=== PATIENT | female | born 1935 | race Caucasian/White ===

== ENCOUNTER 2016-11-30 20:55 | Emergency (ER) | payer OTHER, MEDICARE ==
[2016-11-30 21:06] VITALS: TEMP 98.2
--- NOTE | 2016-11-30 21:30 | EDPHY ---
H & P Stated Complaint: weakness hx of a fib, diarrhea HPI/ROS: CHIEF COMPLAINT: Weakness, rash HISTORY OF PRESENT ILLNESS: This patient is a 81 year old female arriving with her family complaining of diffuse weakness that she began noticing about three weeks ago, and a rash with onset one week ago. She lives in [place], and visited urgent care there 11/18/16. She was prescribed Doxycycline 100mg and Amoxicillin 500mg. She had developed a rash on her right upper chest and her right leg, which she states was also sore and swollen--that is what prompted the visit to urgent care. Her leg rash has resolved, but she continues with rash on her chest. She arrived in [place] one week ago, 11/23/16. Her family at bedside states she seems lethargic, weak, and irritable, with decreased appetite throughout the last week. She endorses slight shortness of breath. She has decreased appetite but has been taking Pedialyte and Ensure this week. This afternoon, she reports an episode of diarrhea with associated blood, which she states is likely due to hemorrhoids. She denies chest pain, nausea, vomiting, headache, dysuria, or other associated symptoms. The patient is scheduled for a follow- up with her primary care physician in [place] on 12/03/16. REVIEW OF SYSTEMS: A ten point review of systems was performed and is negative with the exception of the items mentioned in the HPI. Source: Patient, Family Exam Limitations: No limitations - Personal History Current Tetanus/Diphtheria Vaccine: Unsure Current Tetanus Diphtheria and Acellular Pertussis (TDAP): Unsure - Medical/Surgical History PMH: 1. Subdural hematoma 1.5 years ago (prior to this, anticoagulated with Coumadin. No longer taking blood thinners) 2. Hypertension. 3. History of thyroid cancer (total thyroidectomy) 4. Two hip replacements, left 5. Broken left femur in April,. Not surgically repaired. 6. Varicose vein surgery Hx Asthma: No Hx Chronic Respiratory Disease: No Hx Diabetes: No Hx Cardiac Disease: No Hx Renal Disease: No Hx Cirrhosis: No Hx Alcoholism: No Hx HIV/AIDS: No Hx Splenectomy or Spleen Trauma: No Other PMH: HTN, a fib, thyroid CA and thyroid removed, - Social History Smoking Status: Never smoked Alcohol Use: Rarely Additional Social History: Lives in [place]. and two daughters at bedside. - Physical Exam Exam: General Appearance: Alert. Vital signs reviewed. Eyes: Pupils equal and round, no conjunctival injection, no discharge. Anicteric. ENT, Mouth: Mucous membranes are moist, no oropharyngeal erythema or edema. Neck: Supple. No posterior cervical spine tenderness. Positive lymphadenopathy with supraclavicular mass (see below). Respiratory: Scattered crackles at bases. Good air movement. Cardiovascular: Regular rate and rhythm; no murmur, rub, or gallop. Gastrointestinal: Midepigastric tenderness, right upper quadrant tenderness. No masses or organomegaly, bowel sounds normal. Skin: Erythematous macular rash with flaking on upper thorax across midline. Skin otherwise normal color, warm and dry. Lymph:Right lateral supraclavicular non-mobile, firm, slightly tender [id number] mass. Back: Nontender to palpation over the thoracolumbar spine. No CVAT. Extremities: Right calf pain behind knee and slightly below knee, positive Homans sign on right. No obvious swelling. Neurological: Alert and oriented. Moving all four extremities easily and equally. Cranial nerves II through XII are examined and are intact (visual acuity not tested). Strength is 5 over 5 bilaterally with testing of all major motor groups. Sensation is intact to light touch over all 4 extremities. Deep tendon reflexes are 2+ in the biceps and knees bilaterally. Gait is normal. Psychiatric: Normal affect. Constitutional: Initial Vital Signs Temperature (C) 36.8 C 11/30/16 21:00 Heart Rate 89 11/30/16 21:00 Respiratory Rate 16 11/30/16 21:00 Blood Pressure 131/73 H 11/30/16 21:00 O2 Sat (%) 96 11/30/16 21:00 O2 Delivery Mode Room Air Allergies/Adverse Reactions: No Known Allergies Allergy (Unverified 11/30/16 21:06) Home Medications: Medication Instructions Recorded Amlodipine Besylate 11/30/16 Amoxicillin 11/30/16 Aspirin 11/30/16 Atenolol 11/30/16 Doxycycline Calcium 11/30/16 Lisinopril 11/30/16 Medical Decision Making - Diagnostics EKG Interpretation: The 12 lead EKG was interpreted by myself. See hard copy and/or "tracemaster" electronic copy for interpretation. Atrial fibrillation. Imaging Results: Chest xray viewed by me in PACS. Cardiomegaly, no infiltrate or mass. 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 Neck US: Bilateral Adenopathy, right supraclavicular node measuring 6.4 cm. Imaging: Discussed imaging studies w/ barrel leveler Radiologist ED Course/Re-evaluation: This patient is a 81 year old female presenting today with three week history of weakness and lethargy, and two week history of chest and leg rash. Physical exam reveals erythematous macular rash with flaking on upper thorax across midline, as well as a non-mobile, firm, slightly tender [id number] mass above right her clavicle laterally. She has midepigastric tenderness and right upper quadrant tenderness. She also has right-sided calf pain, and a positive Homans sign. IV established. Plan to order EKG, UA, and labs including CBC, CHEM, and TSH. 23:23 Chest x-ray read by Dr. Renner. Impression: cardiomegaly with perihilar bronchial wall thickening and mild pulmonary venous hypertension with some left basilar linear subsegmental atelectasis versus scar. Blood work reveals some abnormalities which include mild anemia, hypercalcemia at 11.7, elevated TSH of 5.2 (she is on thyroid replacement). Urine is positive for blood and otherwise normal. It is possible that her anemia and her hypercalcemia is causing fatigue and muscle weakness. Have no previous laboratories for comparison. 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 US of head/neck reveals bilateral adenopathy with right supraclavicular fossa node measuring 6.4 cm. The overall picture is concerning for malignancy. Discussed this with patient and family and offered evaluation in [place]. She is returning to her home in [place] and has already established an appointment with her PCP. She prefers to FU and pursue work-up there. I do not think that she is in any immediate danger and am comfortable with that plan. I don not find evidence of acute infection. Lymphadenopathy can also result from endocrine disorder or autoimmune disorder. I do not suspect ACS or cardiac etiology of her fatigue and weakness. - Data Points Laboratory Results: Laboratory Results 11/30/16 21:47 11/30/16 21:47 Medications Given: Discontinued Medications Sodium Chloride (Ns) 500 mls @ 0 mls/hr IV EDNOW ONE PRN Reason: Wide Open Stop: 11/30/16 22:52 Last Admin: 11/30/16 22:30 Dose: 500 mls Departure - Departure Disposition: Home, Routine, Self-Care Clinical Impression: Hypercalcemia, Lymphadenopathy of head and neck region, Superficial thrombophlebitis of right leg Govea's cyst of knee Qualifiers: Laterality: right Qualified Code(s): M71.21 - Synovial cyst of popliteal space [Govea], right knee Fatigue Qualifiers: Fatigue type: other Qualified Code(s): R53.83 - Other fatigue Condition: Good Instructions: Lymphadenopathy (ED), Superficial Thrombophlebitis (ED), Bakers Cyst (ED), Hypercalcemia (ED) Additional Instructions: See your doctor on Friday as planned. Be sure that you take the radiology studies, lab results, and EKG with you. If anything changes for the worse while you are here--worsening fatigue, fainting, severe pain, more diarrhea, any new or concerning symptoms--please return to the emergency department for further evaluation. Referrals: [facility]ONT[facility] OBRIEN [Other] - As per Instructions Report Scribed for: Mary Beth Rome Report Scribed by: Sierra Christie Date of Report: 11/30/16 Time of Report: 23:29 Physician Review and Approval Statement: 11/30/16 21:30 Portions of this note were transcribed by the medical record librarian. I, Dr. Mary Beth Rome, personally performed the history, physical exam, and medical decision- making; and confirmed the accuracy of the information in the transcribed note.
[2016-11-30 22:49] LABS: % IMMATURE GRANULYOCYTES 0.5 % (0.0-1.1); ABSOLUTE IMMATURE GRANULOCYTES 0.05 10^3/uL (0.00-0.10); ADD DIFF? NO; ADD MORPH? NO; ADD SCAN? NO; ATYPICAL LYMPHOCYTE FLAG 0 (0-99); FRAGMENT RBC FLAG 0 (0-99); HEMATOCRIT 32.8 % (38.0-47.0); HEMOGLOBIN 10.8 g/dL (12.6-16.3); LEFT SHIFT FLG 0 (0-99); LIPEMIA HEMOLYSIS FLAG 80 (0-99); MEAN CELL HEMOGLOBIN 29.6 pg (27.9-34.1); MEAN CELL HEMOGLOBIN CONCENTR. 32.9 g/dL (32.4-36.7); MEAN CELL VOLUME 89.9 fL (81.5-99.8); MEAN PLATELET VOLUME 9.8 fL (8.7-11.7); PLATELET CLUMPS FLAG 0 (0-99); PLATELET COUNT 269 10^3/uL (150-400); RED BLOOD CELL COUNT 3.65 10^6/uL (4.18-5.33); RED CELL DISTRIBUTION WIDTH 13.8 % (11.5-15.2)
[2016-11-30] MEDS ORDERED: NS 500 ML IV ONE (22:51)
[2016-11-30 22:54] LABS: ANION GAP 8 mEq/L (8-16); CALCIUM 11.7 mg/dL (8.5-10.4); CARBON DIOXIDE 24 mEq/l (22-31); CHLORIDE 102 mEq/L (97-110); CREATININE 0.6 mg/dL (0.6-1.0); GLOMERULAR FILTRATION RATE > 60; GLUCOSE 129 mg/dL (70-100); SODIUM 134 mEq/L (134-144)
--- NOTE | 2016-11-30 23:00 | CPEKG ---
Heart Rate: 85 RR Interval: 706 QRSD Interval: 108 QT Interval: 368 QTC Interval: 438 QRS Hastings: 20 T Wave Hastings: -48 EKG Severity - ABNORMAL ECG - EKG Impression: ATRIAL FIBRILLATION, V-RATE 74-97 EKG Impression: BORDERLINE T ABNORMALITIES, DIFFUSE LEADS Electronically Signed By: Mary Beth Rome 01-Dec-2016 00:15:11
[2016-11-30 23:57] LABS: COLOR YELLOW; LEUKOCYTE ESTERASE,URINE NEGATIVE (NEGATIVE); NITRITE,URINE NEGATIVE (NEGATIVE)
[2016-12-01 00:01] LABS: MUCUS TRACE /lpf (NONE-1+); RBC,URINE 25-50 /hpf (0-3)
[2016-12-01 00:45] VITALS: BP 122/58
[2016-12-01 01:30] VITALS: PULSE 85; RESP 16; O2SAT 95
== END 2016-12-01 01:29 | disposition home or self-care (01) ==
DX: M71.21 Synovial cyst of popliteal space [Baker], right knee (principal); I80.01 Phlebitis and thrombophlebitis of superficial vessels of right lower extremity; R59.1 Generalized enlarged lymph nodes; E83.52 Hypercalcemia; R53.83 Other fatigue; I10 Essential (primary) hypertension; Z79.82 Long term (current) use of aspirin; Z85.850 Personal history of malignant neoplasm of thyroid